=== PATIENT | male | born 1980 | race Caucasian/White ===

== ENCOUNTER 2016-03-10 10:40 | Emergency (ER) | payer SELFPAY ==
--- NOTE | 2016-03-10 12:15 | ED NURSING NOTES ---
Clinical Report - Nurses [facility] [place] [address] 03/10/2016 10:41 [id number] TRI[facility] Triage time 11:11. Acuity: LEVEL 4. Chief Complaint: RIGHT EYE PROBLEM. 11:12 03/10/16. 11:12 03/10/16. Alert. No acute distress. VISUAL ACUITY: Visual acuity performed: left eye 20/25; right eye 20/40 minus one letter; both eyes 20/25 minus one letter. --11:17 Beau Weathers R.N. 11:11 03/10/16. BP: 127/62. HR: 70. RR: 14. O2 saturation: 100% on room air. Temp: 98.1 F (oral). --11:17 Beau Weathers R.N. Weight: 56.6 kg stated. Height/Length: 72 inches Per Patient. BMI: 16.9. --11:12 Beau Weathers R.N. Medications None. --11:13 Beau Weathers R.N. Medication/allergy information source: the patient. --11:17 Beau Weathers R.N. Allergies None. --11:13 Beau Weathers R.N. History Arrived by private vehicle. Historian: patient. Unaccompanied. Primary physician (NONE). 11:12 03/10/16. Onset. (Thursday). He may have sustained an injury. Mechanism- Metal from a kwame. PAST MEDICAL HX: Immunizations: up-to-date and (Tdap-3 years ago). SOCIAL HX: Never smoker. History of occasional drug use: marijuana. No alcohol use. No infectious disease exposure. ABUSE ASSESSMENT: No report of abuse. FALL RISK ASSESSMENT: Fall risk assessment completed. No fall risk identified. NUTRITIONAL RISK ASSESSMENT: The nutritional risk assessment revealed no deficiencies. FUNCTIONAL ASSESSMENT: Functional assessment: no impairments noted. LEARNING NEEDS ASSESSMENT: The learning needs assessment revealed no barriers. SKIN INTEGRITY ASSESSMENT: Skin integrity risk assessment completed. No skin integrity risk identified. --11:17 Beau Weathers R.N. The patient has had moderate right-sided blurred vision. --11:17 Beau Weathers R.N. PROBLEMS: no known problems. ADDITIONAL SURGERIES: no known surgeries. Assessment 11:12 03/10/16. --11:17 Beau Weathers R.N. Interventions 11:12 03/10/16. 11:12 03/10/16. ID and allergy band on patient. To treatment room. --11:17 Beau Weathers R.N. PHYSICAL ASSESSMENT 11:14 03/10/16. Ambulatory to room. GENERAL / NEURO / PSYCH: Appears in no acute distress. RESPIRATORY: Respirations not labored. CVS: Capillary refill less than 2 seconds. SKIN: Skin is warm and dry. Normal skin turgor. --11:14 Beau Weathers R.N. NURSING PROGRESS NOTES 11:13 03/10/2016 Proparacaine Eye Drops 2 drop given. Given in the right eye. Allergies verified and confirmed 5 rights. --11:18 Beau Weathers R.N. 11:14 03/10/16. The plan of care for this patient has been created. Head of bed elevated. Reassurance given. Two patient identifiers checked. Call light placed in reach. Side rails up x 2. Bed placed in lowest position. Brakes of bed on. Brakes of chair on. --11:15 Beau Weathers R.N. 11:15 03/10/16. Patient ready for evaluation- chart flagged and notification provided. --11:15 Beau Weathers R.N. DISPOSITION / DISCHARGE 12:28 03/10/16. Condition at departure: improved. The goals identified in the patient's plan of care were met. No learning barriers present. Discharge instructions provided and reviewed with the patient. Reviewed warnings. Reviewed medication(s). Treatments reviewed. Reviewed referral to an medical front desk coordinator. Patient verbalized understanding. Written instructions provided in Czech. The patient was discharged by the physician. He was discharged home and accompanied by asset liability analyst. He left the Emergency Department ambulatory and via private vehicle. Employee Relations Representative driving. FALL RISK ASSESSMENT: Fall risk assessment completed. No fall risk identified. --12:28 Beau Weathers R.N. 12:28 03/10/16. BP: 118/72. HR: 80. RR: 12. O2 saturation: 99% on room air. Temp: 98.2 F (oral). --12:28 Beau Weathers R.N. 12:28 03/10/16. Departure time: 12:28. --12:28 Beau Weathers R.N. Locked/Released at 03/10/2016 13:10 by Beau Weathers R.N.
--- NOTE | 2016-03-10 12:15 | ED ORDER SUMMARY ---
..... Patient: JOE FUNK OrderSheet [facility] VisitID: [id number] [place] [address] 35y, M Registration Date/Time: 03/10/2016 ORDER SHEET Weight: 56.6 kg (stated) Allergies: None GENERAL ORDERS: Visual Acuity (11:18 03/10/2016 JBmary beth R.N. per protocol) (11:18 JBoardley R.N.) MEDICATION ORDERS: Proparacaine Eye Drops (Solution 0.5 %) 2 drops (right eye) (:18 03/10/2016 Melissa R.N. per protocol) (11:18 JBoardley R.N.) IV FLUIDS: ORDER SHEET NOTES: [Electronically signed by Beau Weathers R.N. (13:10 03/10/2016)] [Electronically signed by Elia Melchor Dr. (16:54 03/12/2016)] [Electronically locked/signed by Beau Weathers R.N. (13:10 03/10/2016)]
--- NOTE | 2016-03-10 12:15 | ED ORDER SUMMARY ---
..... Patient: JOE FUNK OrderSheet [facility] VisitID: [id number] [place] [address] 35y, M Registration Date/Time: 03/10/2016 ORDER SHEET Weight: 56.6 kg (stated) Allergies: None GENERAL ORDERS: Visual Acuity (11:18 03/10/2016 JBmary beth R.N. per protocol) (11:18 JBoardley R.N.) MEDICATION ORDERS: Proparacaine Eye Drops (Solution 0.5 %) 2 drops (right eye) (:18 03/10/2016 Melissa R.N. per protocol) (11:18 JBoardley R.N.) IV FLUIDS: ORDER SHEET NOTES: [Electronically signed by Beau Weathers R.N. (13:10 03/10/2016)] [Electronically signed by Elia Melchor Dr. (16:54 03/12/2016)] [Electronically locked/signed by Beau Weathers R.N. (13:10 03/10/2016)]
--- NOTE | 2016-03-10 12:15 | ED NURSING NOTES ---
Clinical Report - Nurses [facility] [place] [address] 03/10/2016 10:41 [id number] TRIAGE Triage time 11:11. Acuity: LEVEL 4. Chief Complaint: RIGHT EYE PROBLEM. 11:12 03/10/16. 11:12 03/10/16. Alert. No acute distress. VISUAL ACUITY: Visual acuity performed: left eye 20/25; right eye 20/40 minus one letter; both eyes 20/25 minus one letter. --11:17 Beau Weathers R.N. 11:11 03/10/16. BP: 127/62. HR: 70. RR: 14. O2 saturation: 100% on room air. Temp: 98.1 F (oral). --11:17 Beau Weathers R.N. Weight: 56.6 kg stated. Height/Length: 72 inches Per Patient. BMI: 16.9. --11:12 Beau Weathers R.N. Medications None. --11:13 Beau Weathers R.N. Medication/allergy information source: the patient. --11:17 Beau Weathers R.N. Allergies None. --11:13 Beau Weathers R.N. History Arrived by private vehicle. Historian: patient. Unaccompanied. Primary physician (NONE). 11:12 03/10/16. Onset. (Thursday). He may have sustained an injury. Mechanism- Metal from a kwame. PAST MEDICAL HX: Immunizations: up-to-date and (Tdap-3 years ago). SOCIAL HX: Never smoker. History of occasional drug use: marijuana. No alcohol use. No infectious disease exposure. ABUSE ASSESSMENT: No report of abuse. FALL RISK ASSESSMENT: Fall risk assessment completed. No fall risk identified. NUTRITIONAL RISK ASSESSMENT: The nutritional risk assessment revealed no deficiencies. FUNCTIONAL ASSESSMENT: Functional assessment: no impairments noted. LEARNING NEEDS ASSESSMENT: The learning needs assessment revealed no barriers. SKIN INTEGRITY ASSESSMENT: Skin integrity risk assessment completed. No skin integrity risk identified. --11:17 Beau Weathers R.N. The patient has had moderate right-sided blurred vision. --11:17 Beau Weathers R.N. PROBLEMS: no known problems. ADDITIONAL SURGERIES: no known surgeries. Assessment 11:12 03/10/16. --11:17 Beau Weathers R.N. Interventions 11:12 03/10/16. 11:12 03/10/16. ID and allergy band on patient. To treatment room. --11:17 Beau Weathers R.N. PHYSICAL ASSESSMENT 11:14 03/10/16. Ambulatory to room. GENERAL / NEURO / PSYCH: Appears in no acute distress. RESPIRATORY: Respirations not labored. CVS: Capillary refill less than 2 seconds. SKIN: Skin is warm and dry. Normal skin turgor. --11:14 Beau Weathers R.N. NURSING PROGRESS NOTES 11:13 03/10/2016 Proparacaine Eye Drops 2 drop given. Given in the right eye. Allergies verified and confirmed 5 rights. --11:18 Beau Weathers R.N. 11:14 03/10/16. The plan of care for this patient has been created. Head of bed elevated. Reassurance given. Two patient identifiers checked. Call light placed in reach. Side rails up x 2. Bed placed in lowest position. Brakes of bed on. Brakes of chair on. --11:15 Beau Weathers R.N. 11:15 03/10/16. Patient ready for evaluation- chart flagged and notification provided. --11:15 Beau Weathers R.N. DISPOSITION / DISCHARGE 12:28 03/10/16. Condition at departure: improved. The goals identified in the patient's plan of care were met. No learning barriers present. Discharge instructions provided and reviewed with the patient. Reviewed warnings. Reviewed medication(s). Treatments reviewed. Reviewed referral to an financial systems administrator. Patient verbalized understanding. Written instructions provided in Luxembourgish. The patient was discharged by the physician. He was discharged home and accompanied by auto body estimator. He left the Emergency Department ambulatory and via private vehicle. Rn Placement driving. FALL RISK ASSESSMENT: Fall risk assessment completed. No fall risk identified. --12:28 Beau Weathers R.N. 12:28 03/10/16. BP: 118/72. HR: 80. RR: 12. O2 saturation: 99% on room air. Temp: 98.2 F (oral). --12:28 Beau Weathers R.N. 12:28 03/10/16. Departure time: 12:28. --12:28 Beau Weathers R.N. Locked/Released at 03/10/2016 13:10 by Beau Weathers R.N.
--- NOTE | 2016-03-12 16:54 | ED MED RECONCILIATION SUMMARY ---
Patient: JOE FUNK Medication Reconciliation Report [facility] VisitID: [id number] [address] [place] [address] 35y, M Registration Date/Time: 03/10/2016 Weight: 56.6 kg Height/Length: 72 in. BMI: 16.9 ALLERGIES: None The patient's Home Medications are listed below: NONE. The source(s) of the original Home Medication information: patient The following Medications were given to the patient in the Emergency Department: Proparacaine [Eye Drops] Eye Drops 2 drop, administered: 03/10/2016 11:13:00 AM The following Medications were prescribed to the patient: Erythromycin ophthalmic ointment 0.5% : apply 0.5 inch to inner aspect of the lower lid on the affected eye every 4 hours while awake. Dispense three and one half (3.5) grams. No refill. -- Elia Melchor Dr.
--- NOTE | 2016-03-12 16:54 | ED DISCHARGE INSTRUCTIONS ---
Patient: JOE FUNK General Instructions [facility] VisitID: [id number] [place] [address] 35y, M Registration Date/Time: 03/10/2016 Retained corneal foreign body right eye (acute). No rust ring. INSTRUCTIONS Warnings: GENERAL WARNINGS: Return or contact your physician immediately if your condition worsens or changes unexpectedly, if not improving as expected, or if other problems arise. Specifically return if pain, vomiting, bleeding, breathing difficulty or fever. Your Current Medications: CONTINUE TAKING THE FOLLOWING MEDICATIONS: None*. Prescription Medications: Erythromycin ophthalmic ointment 0.5% : apply 0.5 inch to inner aspect of the lower lid on the affected eye every 4 hours while awake. Dispense three and one half (3.5) grams. No refill. Follow-up: Return to the emergency department as needed. Follow up with your doctor in three days. Reason for referral: recheck today's concerns. Summary of care provided to patient via paper. Screening today revealed the patient's blood pressure to be in the normal range. The patient should follow up with a primary care provider for blood pressure management. Understanding of the discharge instructions verbalized by patient. Follow-up with: Adele Kinsey MD, Ophthalmology, [facility], [address] [place] [address] [address] [address] Follow up in two days. Reason for referral: recheck today's concerns. Summary of care provided to patient via paper. ADDITIONAL INFORMATION Particle Removed From Eye [Corneal F.B.] A particle got into your eye and stuck to the cornea (the clear part in front of the eye). Your doctor has removed this particle. The cornea is very sensitive and may still hurt for another one to two days while it heals. If a metal particle was in your eye, a "rust ring" may have formed. This may require a second visit for complete removal. Home Care: A cold pack (ice in a plastic bag, wrapped in a towel) may be applied over the eye for 20 minutes at a time to reduce pain. You may use acetaminophen (Tylenol) or ibuprofen (Motrin, Advil) to control pain, unless another pain medicine was prescribed. [NOTE: If you have chronic liver or kidney disease or ever had a stomach ulcer or GI bleeding, talk with your doctor before using these medicines.] If an EYE PATCH was applied: You may place the ice pack directly over the eye-patch. If you were given a return appointment for patch removal and re-exam, do not miss it. An eye patch should not be left in place for more than 48 hours, unless advised to do so by your doctor. DO NOT DRIVE a motor vehicle or operate machinery with the patch in place since you will have difficulty in judging distances with only one eye. If eye drops or ointment was prescribed, take as directed. Follow Up: If no patch was used but the pain continues for more than 48 hours, you should have another exam. Return to this facility or contact the referral doctor to arrange this. If your eye was patched and if you were asked to remove the patch yourself, see your doctor or return to this facility if your pain is still present after removal. If you were given a return appointment for patch removal and re-exam, do not miss this. It could be harmful if the patch remains in place longer than advised. Get Prompt Medical Attention if any of the following occur: Increasing eye pain or pain that does not improve after 24 hours Discharge from the eye Redness of the eye or swelling of the eyelids Worsening vision Erythromycin Eye ointment What is this medicine? ERYTHROMYCIN (mynor betancourt) is a macrolide antibiotic. It is used to treat bacterial eye infections. It also prevents a certain type of eye infection that can occur in some babies. How should I use this medicine? This medicine is only for use in the eye. Follow the directions on the prescription label. Wash hands before and after use. Tilt your head back slightly and pull your lower eyelid down with your index finger to form a pouch. Try not to touch the tip of the tube, to your eye, fingertips, or any other surface. Squeeze the end of the tube to apply a thin layer of the ointment to the inside of the lower eyelid. Close the eye gently to spread the ointment. Your vision may blur for a few minutes. Use your doses at regular intervals. Do not use your medicine more often than directed. Finish the full course prescribed by your doctor or health pharmacy customer care specialist even if you think your condition is better. Do not stop using except on the advice of your doctor or health pharmacy customer care specialist. Talk to your sql ssrs ssis developer regarding the use of this medicine in children. Special care may be needed. What side effects may I notice from receiving this medicine? Side effects that you should report to your doctor or health pharmacy customer care specialist as soon as possible: allergic reactions like skin rash, itching or hives, swelling of the face, lips, or tongue burning, stinging, or itching of the eyes or eyelids changes in vision redness, swelling, or pain What may interact with this medicine? Interactions are not expected. Do not use any other eye products without telling your doctor or health pharmacy customer care specialist. What if I miss a dose? If you miss a dose, use it as soon as you can. If it is almost time for your next dose, use only that dose. Do not use double or extra doses. Where should I keep my medicine? Keep out of the reach of children. Store at room temperature between 15 and 30 degrees C (59 and 86 degrees F). Do not freeze. Throw away any unused ointment after the expiration date. What should I tell my health care provider before I take this medicine? if you have an unusual or allergic reaction to erythromycin, foods, dyes, or preservatives or trying to get breast-feeding What should I watch for while using this medicine? Tell your doctor or health pharmacy customer care specialist if your symptoms do not improve in 2 to 3 days. You have been given the following additional information: Corneal Foreign Body, Removed Erythromycin Eye ointment (Electronically signed by Elia Melchor Dr. 03/12/2016 16:54)
--- NOTE | 2016-03-12 16:54 | ED MAR SUMMARY ---
..... Medication Administration Record [facility] [address] [place] [address] Patient: JOE FUNK Visit ID: [id number] 35y, M Weight: 56.6 kg Height/Length: 72 in BMI: 16.9 ALLERGIES: None Given 11:13 03/10/2016 Beau Weathers R.N. Medication Administered: PROPARACAINE [EYE DROPS], Dose: 2 drop Eye Drops. Medication Ordered: Proparacaine Eye Drops (Solution 0.5 %) 2 drops (right eye).
--- NOTE | 2016-03-12 16:54 | ED CLINICAL REPORT ---
Clinical Report - Physicians/Mid Levels [facility] [address] [place] [address] 03/10/2016 10:41 Patient: JOE FUNK Arrived- By private vehicle. Historian- patient. HISTORY OF PRESENT ILLNESS Chief Complaint: EYE FOREIGN BODY. This started yesterday, involves the right eye, is characterized as moderate in severity and is still present. reports it feel into the eye but did not have much force to it. states it got caught under the eye lid and has not been able to get it out. The patient sustained injury. This occurred at work. Mechanism- working with metal. Eye pain. Patient denies injury to the head, face or neck. Patient also notes other injury (none). REVIEW OF SYSTEMS No fever, sore throat or cough. All systems otherwise negative, except as recorded above. PAST HISTORY See nurses notes. Problems: no known problems. Additional Surgeries: no known surgeries. Medications: None. Allergies: None. SOCIAL HISTORY Never smoker. History of drug use: marijuana. No alcohol use. ADDITIONAL NOTES The nursing notes have been reviewed. PHYSICAL EXAM Vital Signs: 03/10/2016 11:11 BP: 127/62. HR: 70. RR: 14. O2 saturation: 100%. Temp: 98.1 F. Blood pressure normal. Oxygen saturation normal. Appearance: Alert. Oriented X3. No acute distress. HEENT: Ears normal. Nose normal. Pharynx normal. Head appears normal to external inspection. Eyes: Pupils equal, round and reactive to light. Patient with a dark black colored foreign body that is less than a half a millimeter in largest diameter to the right eye approximately at the 3 to 2 o'clock position in the middle. Negative Jamal sign. No other uptake of forcing. No other foreign bodies noted. Left eye is otherwise unremarkable. No cell and flare. Please see nursing notes for further information and visual acuity. normal appearing conjunctivae. No scleral icterus. No hyphema. No hypopyon. Lids and lashes and lacrimal's normal. Neck: Neck supple. Normal inspection. CVS: Normal heart rate and rhythm. Heart sounds normal. Respiratory: No respiratory distress. Breath sounds normal. Abdomen: Nontender. No organomegaly. : Normal genitalia. PROGRESS AND PROCEDURES Removal of Eye Foreign Body: After topical anesthesia with 2 drops of Proparacaine, a single foreign body was successfully removed from the right cornea using no magnification, a moistened sterile cotton swab and a sterile syringe with needle and lid eversion, fluorescein and a Wood's lamp. There were no complications encountered. Aftercare included antibiotic ointment. The patient was cooperative. (Patient tolerated procedure well.). Course of Care: he patient is a pleasant 35-year-old male with no pertinent past medical history presented for evaluation of foreign body in the right eye. Patient reports that she he had a piece of metal that was put into the eye yesterday while working. The patient reports that it did not hurt immediately but felt uncomfortable in the morning. Patient reports no other symptoms. Patient does not work contact lenses. Patient states that he is otherwise feeling fine and has no other symptoms. On examination patient has foreign body noted in the right eye at the middle 2 o'clock position of the cornea. No concern for perforated globe. No signs of other foreign body. Foreign body was removed after obtaining verbal consent. Patient tolerated procedure well. No palpitations. A small dark colored foreign body less than half millimeter in diameter was removed. Patient was reevaluated after having the foreign body removed from the eye. No other abdomen maladies noted. Patient resting in bed and in no acute distress. Antibiotics provided for Prophylaxis. Patient given information for follow-up with eye clinic. Discussed the patient workup, diagnosis, home care, follow-up, and return precautions. All questions answered. The patient expressed understanding of these instructions and was agreeable to them. Do not feel patient is admitted to the hospital require further emergency department evaluation. Disposition: Discharged. Condition: good. CLINICAL IMPRESSION Retained corneal foreign body right eye (acute). No rust ring. INSTRUCTIONS Warnings: GENERAL WARNINGS: Return or contact your physician immediately if your condition worsens or changes unexpectedly, if not improving as expected, or if other problems arise. Specifically return if pain, vomiting, bleeding, breathing difficulty or fever. Your Current Medications: CONTINUE TAKING THE FOLLOWING MEDICATIONS: None*. Prescription Medications: Erythromycin ophthalmic ointment 0.5% : apply 0.5 inch to inner aspect of the lower lid on the affected eye every 4 hours while awake. Dispense three and one half (3.5) grams. No refill. Follow-up: Return to the emergency department as needed. Follow up with your doctor in three days. Reason for referral: recheck today's concerns. Summary of care provided to patient via paper. Screening today revealed the patient's blood pressure to be in the normal range. The patient should follow up with a primary care provider for blood pressure management. Understanding of the discharge instructions verbalized by patient. Follow-up with: Adele Kinsey MD, Ophthalmology, [facility], [address] [place] [address] - [address] [place] [address] Follow up in two days. Reason for referral: recheck today's concerns. Summary of care provided to patient via paper. (Electronically signed by Elia Melchor Dr. 03/12/2016 16:54)
--- NOTE | 2016-03-12 16:54 | ED MED RECONCILIATION SUMMARY ---
Patient: JOE FUNK Medication Reconciliation Report [facility] VisitID: [id number] [address] [place] [address] 35y, M Registration Date/Time: 03/10/2016 Weight: 56.6 kg Height/Length: 72 in. BMI: 16.9 ALLERGIES: None The patient's Home Medications are listed below: NONE. The source(s) of the original Home Medication information: patient The following Medications were given to the patient in the Emergency Department: Proparacaine [Eye Drops] Eye Drops 2 drop, administered: 03/10/2016 11:13:00 AM The following Medications were prescribed to the patient: Erythromycin ophthalmic ointment 0.5% : apply 0.5 inch to inner aspect of the lower lid on the affected eye every 4 hours while awake. Dispense three and one half (3.5) grams. No refill. -- Elia Melchor Dr.
--- NOTE | 2016-03-12 16:54 | ED CLINICAL REPORT ---
Clinical Report - Physicians/Mid Levels [facility] [address] [place] [address] 03/10/2016 10:41 Patient: JOE FUNK Arrived- By private vehicle. Historian- patient. HISTORY OF PRESENT ILLNESS Chief Complaint: EYE FOREIGN BODY. This started yesterday, involves the right eye, is characterized as moderate in severity and is still present. reports it feel into the eye but did not have much force to it. states it got caught under the eye lid and has not been able to get it out. The patient sustained injury. This occurred at work. Mechanism- working with metal. Eye pain. Patient denies injury to the head, face or neck. Patient also notes other injury (none). REVIEW OF SYSTEMS No fever, sore throat or cough. All systems otherwise negative, except as recorded above. PAST HISTORY See nurses notes. Problems: no known problems. Additional Surgeries: no known surgeries. Medications: None. Allergies: None. SOCIAL HISTORY Never smoker. History of drug use: marijuana. No alcohol use. ADDITIONAL NOTES The nursing notes have been reviewed. PHYSICAL EXAM Vital Signs: 03/10/2016 11:11 BP: 127/62. HR: 70. RR: 14. O2 saturation: 100%. Temp: 98.1 F. Blood pressure normal. Oxygen saturation normal. Appearance: Alert. Oriented X3. No acute distress. HEENT: Ears normal. Nose normal. Pharynx normal. Head appears normal to external inspection. Eyes: Pupils equal, round and reactive to light. Patient with a dark black colored foreign body that is less than a half a millimeter in largest diameter to the right eye approximately at the 3 to 2 o'clock position in the middle. Negative Jamal sign. No other uptake of forcing. No other foreign bodies noted. Left eye is otherwise unremarkable. No cell and flare. Please see nursing notes for further information and visual acuity. normal appearing conjunctivae. No scleral icterus. No hyphema. No hypopyon. Lids and lashes and lacrimal's normal. Neck: Neck supple. Normal inspection. CVS: Normal heart rate and rhythm. Heart sounds normal. Respiratory: No respiratory distress. Breath sounds normal. Abdomen: Nontender. No organomegaly. : Normal genitalia. PROGRESS AND PROCEDURES Removal of Eye Foreign Body: After topical anesthesia with 2 drops of Proparacaine, a single foreign body was successfully removed from the right cornea using no magnification, a moistened sterile cotton swab and a sterile syringe with needle and lid eversion, fluorescein and a Wood's lamp. There were no complications encountered. Aftercare included antibiotic ointment. The patient was cooperative. (Patient tolerated procedure well.). Course of Care: he patient is a pleasant 35-year-old male with no pertinent past medical history presented for evaluation of foreign body in the right eye. Patient reports that she he had a piece of metal that was put into the eye yesterday while working. The patient reports that it did not hurt immediately but felt uncomfortable in the morning. Patient reports no other symptoms. Patient does not work contact lenses. Patient states that he is otherwise feeling fine and has no other symptoms. On examination patient has foreign body noted in the right eye at the middle 2 o'clock position of the cornea. No concern for perforated globe. No signs of other foreign body. Foreign body was removed after obtaining verbal consent. Patient tolerated procedure well. No palpitations. A small dark colored foreign body less than half millimeter in diameter was removed. Patient was reevaluated after having the foreign body removed from the eye. No other abdomen maladies noted. Patient resting in bed and in no acute distress. Antibiotics provided for Prophylaxis. Patient given information for follow-up with eye clinic. Discussed the patient workup, diagnosis, home care, follow-up, and return precautions. All questions answered. The patient expressed understanding of these instructions and was agreeable to them. Do not feel patient is admitted to the hospital require further emergency department evaluation. Disposition: Discharged. Condition: good. CLINICAL IMPRESSION Retained corneal foreign body right eye (acute). No rust ring. INSTRUCTIONS Warnings: GENERAL WARNINGS: Return or contact your physician immediately if your condition worsens or changes unexpectedly, if not improving as expected, or if other problems arise. Specifically return if pain, vomiting, bleeding, breathing difficulty or fever. Your Current Medications: CONTINUE TAKING THE FOLLOWING MEDICATIONS: None*. Prescription Medications: Erythromycin ophthalmic ointment 0.5% : apply 0.5 inch to inner aspect of the lower lid on the affected eye every 4 hours while awake. Dispense three and one half (3.5) grams. No refill. Follow-up: Return to the emergency department as needed. Follow up with your doctor in three days. Reason for referral: recheck today's concerns. Summary of care provided to patient via paper. Screening today revealed the patient's blood pressure to be in the normal range. The patient should follow up with a primary care provider for blood pressure management. Understanding of the discharge instructions verbalized by patient. Follow-up with: Adele Kinsey MD, Ophthalmology, [facility], [address] [place] [address] - [address] [place] [address] Follow up in two days. Reason for referral: recheck today's concerns. Summary of care provided to patient via paper. (Electronically signed by Elia Melchor Dr. 03/12/2016 16:54)
--- NOTE | 2016-03-12 16:54 | ED DISCHARGE INSTRUCTIONS ---
Patient: JOE FUNK General Instructions [facility] VisitID: [id number] [place] [id number] 35y, M Registration Date/Time: 03/10/2016 Retained corneal foreign body right eye (acute). No rust ring. INSTRUCTIONS Warnings: GENERAL WARNINGS: Return or contact your physician immediately if your condition worsens or changes unexpectedly, if not improving as expected, or if other problems arise. Specifically return if pain, vomiting, bleeding, breathing difficulty or fever. Your Current Medications: CONTINUE TAKING THE FOLLOWING MEDICATIONS: None*. Prescription Medications: Erythromycin ophthalmic ointment 0.5% : apply 0.5 inch to inner aspect of the lower lid on the affected eye every 4 hours while awake. Dispense three and one half (3.5) grams. No refill. Follow-up: Return to the emergency department as needed. Follow up with your doctor in three days. Reason for referral: recheck today's concerns. Summary of care provided to patient via paper. Screening today revealed the patient's blood pressure to be in the normal range. The patient should follow up with a primary care provider for blood pressure management. Understanding of the discharge instructions verbalized by patient. Follow-up with: Adele Kinsey MD, Ophthalmology, [facility], [address] [place] [address] [address] [address] Follow up in two days. Reason for referral: recheck today's concerns. Summary of care provided to patient via paper. ADDITIONAL INFORMATION Particle Removed From Eye [Corneal F.B.] A particle got into your eye and stuck to the cornea (the clear part in front of the eye). Your doctor has removed this particle. The cornea is very sensitive and may still hurt for another one to two days while it heals. If a metal particle was in your eye, a "rust ring" may have formed. This may require a second visit for complete removal. Home Care: A cold pack (ice in a plastic bag, wrapped in a towel) may be applied over the eye for 20 minutes at a time to reduce pain. You may use acetaminophen (Tylenol) or ibuprofen (Motrin, Advil) to control pain, unless another pain medicine was prescribed. [NOTE: If you have chronic liver or kidney disease or ever had a stomach ulcer or GI bleeding, talk with your doctor before using these medicines.] If an EYE PATCH was applied: You may place the ice pack directly over the eye-patch. If you were given a return appointment for patch removal and re-exam, do not miss it. An eye patch should not be left in place for more than 48 hours, unless advised to do so by your doctor. DO NOT DRIVE a motor vehicle or operate machinery with the patch in place since you will have difficulty in judging distances with only one eye. If eye drops or ointment was prescribed, take as directed. Follow Up: If no patch was used but the pain continues for more than 48 hours, you should have another exam. Return to this facility or contact the referral doctor to arrange this. If your eye was patched and if you were asked to remove the patch yourself, see your doctor or return to this facility if your pain is still present after removal. If you were given a return appointment for patch removal and re-exam, do not miss this. It could be harmful if the patch remains in place longer than advised. Get Prompt Medical Attention if any of the following occur: Increasing eye pain or pain that does not improve after 24 hours Discharge from the eye Redness of the eye or swelling of the eyelids Worsening vision Erythromycin Eye ointment What is this medicine? ERYTHROMYCIN (mynor betancourt) is a macrolide antibiotic. It is used to treat bacterial eye infections. It also prevents a certain type of eye infection that can occur in some babies. How should I use this medicine? This medicine is only for use in the eye. Follow the directions on the prescription label. Wash hands before and after use. Tilt your head back slightly and pull your lower eyelid down with your index finger to form a pouch. Try not to touch the tip of the tube, to your eye, fingertips, or any other surface. Squeeze the end of the tube to apply a thin layer of the ointment to the inside of the lower eyelid. Close the eye gently to spread the ointment. Your vision may blur for a few minutes. Use your doses at regular intervals. Do not use your medicine more often than directed. Finish the full course prescribed by your doctor or health home visit field care manager even if you think your condition is better. Do not stop using except on the advice of your doctor or health home visit field care manager. Talk to your third shift lieutenant regarding the use of this medicine in children. Special care may be needed. What side effects may I notice from receiving this medicine? Side effects that you should report to your doctor or health home visit field care manager as soon as possible: allergic reactions like skin rash, itching or hives, swelling of the face, lips, or tongue burning, stinging, or itching of the eyes or eyelids changes in vision redness, swelling, or pain What may interact with this medicine? Interactions are not expected. Do not use any other eye products without telling your doctor or health home visit field care manager. What if I miss a dose? If you miss a dose, use it as soon as you can. If it is almost time for your next dose, use only that dose. Do not use double or extra doses. Where should I keep my medicine? Keep out of the reach of children. Store at room temperature between 15 and 30 degrees C (59 and 86 degrees F). Do not freeze. Throw away any unused ointment after the expiration date. What should I tell my health care provider before I take this medicine? if you have an unusual or allergic reaction to erythromycin, foods, dyes, or preservatives or trying to get breast-feeding What should I watch for while using this medicine? Tell your doctor or health home visit field care manager if your symptoms do not improve in 2 to 3 days. You have been given the following additional information: Corneal Foreign Body, Removed Erythromycin Eye ointment (Electronically signed by Elia Melchor Dr. 03/12/2016 16:54)
--- NOTE | 2016-03-12 16:54 | ED MAR SUMMARY ---
..... Medication Administration Record [facility] [address] [place] [address] Patient: JOE FUNK Visit ID: [id number] 35y, M Weight: 56.6 kg Height/Length: 72 in BMI: 16.9 ALLERGIES: None Given 11:13 03/10/2016 Beau Weathers R.N. Medication Administered: PROPARACAINE [EYE DROPS], Dose: 2 drop Eye Drops. Medication Ordered: Proparacaine Eye Drops (Solution 0.5 %) 2 drops (right eye).
== END 2016-03-10 12:28 | disposition home or self-care (01) ==
LOC: ED SRH 10:40
DX: T15.01XA Foreign body in cornea, right eye, initial encounter (principal); X58.XXXA Exposure to other specified factors, initial encounter; Y93.9 Activity, unspecified; Y92.9 Unspecified place or not applicable; Y99.0 Civilian activity done for income or pay